=== PATIENT | female | born 1975 | race Caucasian/White ===

== ENCOUNTER → 2016-09-18 | Outpatient (CLI) | payer BC ==
[~2016-09-18] MED LIST: LACTCAP7 PO; MULT-65 PO; OMEG100037 PO; PERC5TAB12 PO; PREN0.01 PO
== END ==
LOC: MERGE 10:09 → HPND 10:09
PROVIDERS: ATTEND Obstetrics & Gynecology
DX: O09.522 Supervision of elderly multigravida, second trimester (principal)
CPT/HCPCS: 76811

== ENCOUNTER → 2016-10-23 | Outpatient (CLI) | payer BC | LOC: HPND 12:47 → MERGE 12:47 | PROVIDERS: ATTEND Obstetrics & Gynecology | DX: O09.522 Supervision of elderly multigravida, second trimester (principal) | CPT/HCPCS: 76816 ==

== ENCOUNTER 2017-02-07 13:16 | Inpatient (IN) | payer BC ==
[2017-02-17] VITALS (14 sets, daily range): BP systolic 91–116; BP diastolic 51–76; PULSE 52–88; RESP 16–20; TEMP 97.5–98.7; O2SAT 96–97
[2017-02-17] MEDS ORDERED: LACTATED RINGER'S 1000 ML INJ 1,000 ML IV ONE (06:34)
--- NOTE | 2017-02-17 06:40 | HHI.HP ---
HPI Chief Complaint 39 weeks for repeat CS and BTL Date Seen: Feb 17, 2017 Time Seen: 06:30 Travel History International Travel<30 Days: No Contact w/Intl Traveler<30Days: No Known Affected Area: No History of Present Illness HPI 41 yo at 39 weeks for CS BTL aware of risks and benefits Para: 2 : 3 History Past Medical History Medical History: Denies Significant Hx Obstetric History Obstetric History CS x2 Past Surgical History Narrative Surgical above Family History Family History: Negative Social History Alcohol Use: No Tobacco Use: No Substance Abuse: No Allergies-Medications (Allergen,Severity, Reaction): Coded Allergies: Aspirin (Verified Allergy, Severe, STOMACH PROBLEM, 04/06/11) Latex (Verified Allergy, Severe, Itching, 04/06/11) Penicillin (Verified Allergy, Severe, Rash, 10/29/16) Home Meds Reported Medications Lactobacillus (Probiotic) Cap1 Tab PO DAILY 12/10/14 [place]-3 Fatty Acids (Fish Oil 1000 mg)1 Cap Cap1 Cap PO DAILY 12/10/14 Multiple Vitamin (Multi-Vitamin Daily)Daily Tab1 Tab PO DAILY 12/10/14 Oxycodone-Acetaminophen 5-325 mg (Percocet 5-325 mg)5 Mg/325 Mg Tab1-2 Tab PO Q4H PRN (PAIN) #30 TAB // Multivit/Min/Fol Ac/Iron/Pren ( Vit ( Plus)) Tab1 Tab PO DAILY #30 CONTINUE WHILE 04/06/11 Review of Systems Except as stated in HPI: all other systems reviewed are Neg Physical Exam Narrative GENERAL: Well-nourished, well-developed patient. SKIN: Warm and dry. HEAD: Normocephalic and atraumatic. EYES: No scleral icterus. No injection or drainage. ENT: No nasal drainage noted. Mucous membranes pink. Airway patent. NECK: Supple, trachea midline. No JVD. CARDIOVASCULAR: Regular rate and rhythm without murmurs, gallops, or rubs. RESPIRATORY: Breath sounds equal bilaterally. No accessory muscle use. BREASTS: Bilateral exam showed no masses , no retractions, no nipple discharge. ABDOMEN/GI: Abdomen soft, non-tender, bowel sounds present, no rebound, no guarding Gravid to [-] weeks size Fundal Height: [-] GENITOURINARY: External Genitalia: intact and normal in appearance BUS glands: [-] Cervix: [-] Dilatation: [-] Effacement: [-] Station: [-] Presentation: [-] Membranes: [intact or ruptured] Uterine Contractions: [-] FHT's: Category: [-] Baseline: [-] Reactive: [-] Variability: [-] Decels: [-] EXTREMITIES: No cyanosis or edema. BACK: Nontender without obvious deformity. No CVA tenderness. NEUROLOGICAL: Awake and alert. Motor and sensory grossly within normal limits. Five out of 5 muscle strength in all muscle groups. Normal speech. Data Data Vital Signs Reviewed: Yes Orders Admit To Inpatient (02/17/17 ) Code Status (02/17/17 06:34) Vital Signs (Adult) .ON ADMISSION (02/17/17 06:34) Activity Oob Ad Sonya (02/17/17 06:34) Heart (02/17/17 06:34) Urinary Catheter Management TIGRE.Q8H (02/17/17 06:34) ^ Preps (02/17/17 06:34) Scd / Gordo / Foot Pump TIGRE.QSHIFT (02/17/17 06:34) ^ Ultrasound For Locatio (02/17/17 06:34) Diet Npo (02/17/17 Breakfast) Lactated Ringer's 1000 Ml Inj (Lr 1000 M (02/17/17 06:34) Lactated Ringer's 1000 Ml Inj (Lr 1000 M (02/17/17 07:04) Cefazolin 2 Gm Premix (Ancef 2 Gm Premix (02/17/17 07:45) Citric Acid-Sodium Citrate Liq (Bicitra (02/17/17 08:15) Type And Screen (02/17/17 06:34) Complete Blood Count With Diff (02/17/17 06:34) Urinalysis - C+S If Indicated (02/17/17 06:34) Inpatient Certification (02/17/17 ) Specimen To Be Collected PRN (02/17/17 06:34) Assessment/Plan Problem List: (1) Previous section (2) 39 weeks gestation of (3) Encounter for sterilization Assessment and Plan for surgery Blaise Colby MD Feb 17, 2017 06:40
[2017-02-17] MEDS ORDERED: CLINDAMYCIN 600 MG/NS 100 ML IV SCH ×2 (07:00)
[2017-02-17] MEDS ORDERED: LACTATED RINGER'S 1000 ML INJ 1,000 ML IV SCH ×2 (07:04→13:52)
[2017-02-17 07:33] LABS: AUTOMATED NEUTROPHIL # 7.7 TH/MM3 (1.8-7.7); BASOPHIL # 0.1 TH/MM3 (0-0.2); BASOPHIL % 0.7 % (0.0-2.0); EOSINOPHIL # 0.1 TH/MM3 (0-0.4); HEMATOCRIT 34.5 % (35.0-46.0); HEMO FLAGS DIFF FINAL; LYMPH % 19.7 % (9.0-44.0); LYMPHOCYTE # 2.1 TH/MM3 (1.0-4.8); MEAN CELL VOLUME 91.2 FL (80.0-100.0); MEAN CORPUSCULAR HEMOGLOBIN 32.6 PG (27.0-34.0); MEAN CORPUSCULAR HGB CONC 35.8 % (32.0-36.0); MONO % 4.4 % (0.0-8.0); NEUT % 74.2 % (16.0-70.0); PLATELET COUNT 125 TH/MM3 (150-450); RED BLOOD COUNT 3.78 MIL/MM3 (4.00-5.30); WHITE BLOOD COUNT 10.4 TH/MM3 (4.0-11.0)
[2017-02-17] MEDS ORDERED: ceFAZolin 2 GM PREMIX 50 ML IV SCH (07:45)
[2017-02-17] MEDS ORDERED: CLINDAMYCIN PHOS 600 MG/4 ML VIAL ONE (07:46)
[2017-02-17] MEDS ORDERED: OXYTOCIN 10 UNIT/ML AMP ONE (07:47)
[2017-02-17 07:54] LABS: BACTERIA, URINE OCC /hpf; BLOOD, URINE NEG (NEG); COMMENT (UR) CULT NOT INDICATED; CULTURE IF INDICATED CULT NOT INDICATED; GLUCOSE,URINE NEG (NEG); KETONE, URINE NEG (NEG); MUCUS URINE FEW /lpf (OCC); NITRITE,URINE NEG (NEG); PH, URINE 6.5 (5.0-8.5); SQUAMOUS EPITHELIAL CELL URINE 8 /hpf (0-5); URINE COLOR YELLOW (YELLW/STRAW)
[2017-02-17] MEDS ORDERED: EPIDURAL-NALOXONE HCL 0.4 MG/ML AMP IV PRN (08:00)
[2017-02-17] MEDS ORDERED: ONDANSETRON HCL 4 MG/2 ML VIAL IV PUSH ONE (08:00)
[2017-02-17] MEDS ORDERED: EPIDURAL-DIPHENHYDRAMINE HCL 50 MG CAP PO PRN (08:00)
[2017-02-17] MEDS ORDERED: EPIDURAL-DIPHENHYDRAMINE HCL 50 MG/ML VIAL IV PUSH PRN (08:00)
[2017-02-17] MEDS ORDERED: EPIDURAL-DO NOT ADMINISTER ANTICOAGULANTS PRN (08:00)
[2017-02-17] MEDS ORDERED: EPIDURAL-NO SYSTEMIC NARCOTICS PRN (08:00)
[2017-02-17] MEDS ORDERED: LACTATED RINGER'S 1,000 ML BAG IV ONE (08:00)
[2017-02-17] MEDS ORDERED: MORPHINE SULFATE PF 5 MG/10 ML VIAL IT ONE (08:00)
[2017-02-17] MEDS ORDERED: PHENYLEPH/NS 1000 MCG/10 ML SYR IV ONE (08:00)
[2017-02-17] MEDS ORDERED: CITRIC ACID-SODIUM CITRATE LIQ 30 ML UDC PO SCH (08:15)
--- NOTE | 2017-02-17 08:56 | PD.OB.DELI ---
Procedure Note Section Procedure Pre Op Diagnosis: (1) 39 weeks gestation of (2) Encounter for sterilization (3) Previous section Post Op Diagnosis: (1) Encounter for sterilization (2) delivery delivered Performed by Blaise Colby Procedure: Repeat Low Transverse Sec, Other (BTL) Indication for delivery: Desired elective repeat Informed consent obtained: For anesthesia, For procedure Confirmed correct: Patient, Procedure, Site, Time-out taken Anesthesia: Spinal Urinary catheter: Inserted using sterile technique, To dependent drainage Sterile preparation: Duraprep Position: Supine with wedge to left side Operative Features Skin Incision: Pfannenstiel Uterine Incision: Low transverse w/knife / blunt ext Presentation: Occiput anterior Delivery of infant: Uneventful Infant: Female, Single One Minute : 9 Five Minute : 9 Weight: 3180 gm Status of infant: Viable, Cord blood Placenta delivered: Intact Medications: Antibiotics Estimated blood loss: 500 Procedure tolerated: Well Maternal Condition: Stable Condition: Stable Blaise Colby MD Feb 17, 2017 08:56
[2017-02-17] MEDS ORDERED: SODIUM CHLORIDE 0.9% FLUSH 10 ML FLUSH IV FLUSH PRN (09:00)
[2017-02-17] MEDS ORDERED: KETOROLAC TROMETHAMINE 60 MG/2 ML (IM) VIAL IM PRN (09:00)
[2017-02-17] MEDS ORDERED: oxyCODONE/ACETAMINOPHEN 5 MG/325 MG TAB PO PRN (09:00)
[2017-02-17] MEDS ORDERED: SODIUM CHLORIDE 0.9% FLUSH 10 ML FLUSH IV FLUSH SCH (09:00)
[2017-02-17] MEDS ORDERED: SIMETHICONE 80 MG CHEWABLE TAB PO PRN (09:00)
[2017-02-17] MEDS ORDERED: OXYTOCIN 30 UNITS-500ML PREMIX 500 ML IV ONE (09:00)
[2017-02-17] MEDS ORDERED: KETOROLAC TROMETHAMINE 60 MG/2 ML (IM) VIAL IM ONE (09:43)
[2017-02-17] MEDS: IBUPROFEN 600 MG TAB PO PRN ×2 (15:45→23:23)
[2017-02-17] MEDS ORDERED: MORPHINE SULFATE PF 10 MG/10 ML VIAL ONE (16:22)
[2017-02-17] MEDS ORDERED: ONDANSETRON HCL 4 MG/2 ML VIAL ONE (16:22)
[2017-02-17] MEDS ORDERED: OXYTOCIN 30 UNITS-500ML PREMIX 500 ML IV PRN (19:00)
[2017-02-17] MEDS: oxyCODONE/ACETAMINOPHEN 5 MG/325 MG TAB PO PRN (21:01)
[2017-02-18 01:35] VITALS: BP 96/70; PULSE 79; RESP 18
[2017-02-18] MEDS: oxyCODONE/ACETAMINOPHEN 5 MG/325 MG TAB PO PRN ×6 (01:37→22:34)
[2017-02-18 05:10] VITALS: BP 100/58; PULSE 67; RESP 20; TEMP 98
[2017-02-18] MEDS: IBUPROFEN 600 MG TAB PO PRN ×3 (05:19→17:06)
[2017-02-18 08:00] VITALS: BP 85/63; PULSE 56; RESP 16; RESP 18; TEMP 97.3
--- NOTE | 2017-02-18 08:28 | MP ---
cc: EVANGELINA COLBY DATE OF SURGERY: 02/17/2017 PROCEDURE Repeat low transverse section, bilateral tubal ligation. PREOPERATIVE DIAGNOSIS Desires permanent sterilization, repeat x3. POSTOPERATIVE DIAGNOSIS Desires permanent sterilization, repeat x3. SURGEON Dr. Evangelina Colby. ESTIMATED BLOOD LOSS 500 ccs. COMPLICATIONS None. ANESTHESIA Spinal. FINDINGS Live female , 3180 grams, Apgars 9 and 9. PROCEDURE IN DETAIL After informed consent the patient was taken to the operating room where she was placed under spinal anesthesia, placed in the supine position, left lateral tilt. The abdomen, perineum and vagina were prepped and draped in normal sterile fashion. Soriano catheter was then placed to gravity. Once adequate anesthesia was assured a Pfannenstiel skin incision was carried sharply at the old scar, part of the scar was excised secondary to some thickness. We incised down to the level of the rectus muscle, dissected rectus muscle, in the midline. The peritoneum was entered bluntly with a finger. The incision was extended laterally using blunt traction. A hand was placed into the abdomen. The uterus was noted to be midline. Bladder was already low and a bladder flap was created by dissecting the bladder and bladder blade was replaced. A low-transverse uterine incision was then made, carried sharply to the uterine cavity. Clear fluid was noted. The incision was extended laterally using blunt traction. The hand was placed into the uterus. The infant's head was guided through the incision using fundal pressure, the infant's head readily delivered. Nose and mouth were suctioned well. Cord was clamped and cut and the was handed to the pediatrics in attendance. Cord blood was collected. Placenta was delivered manually. The uterus was exteriorized, wiped free from all remaining products of conception. The uterine incision was then closed with running locking stitch of chromic suture. Good hemostasis was achieved. Fallopian tubes were tied bilaterally. The right fallopian tube was tagged in a Meenu fashion. Once both fallopian tubes were tied the uterus was placed back in the abdomen with some slight oozing from the right fallopian tube, so a second stitch was placed for hemostasis. Good hemostasis was achieved. No hematoma was forming. At this point the uterine incision was inspected one more time. The left and right fallopian tube pedicles were inspected and noted to be hemostatic. The fascia was then closed with Vicryl suture. The skin was closed with subcuticular stitch. Each layer was noted to be hemostatic prior to closure and the patient tolerated the procedure well. MD JEFFERSON Neal/KHADIJAH /8:56 AM /8:17 AM
--- NOTE | 2017-02-18 08:43 | HHI.OB ---
Subjective Post Day: 1 Remarks doing well Objective Vitals/I&O Vital Signs Date Time Temp Pulse Resp B/P Pulse Ox O2 Delivery O2 Flow Rate FiO2 02/18/17 05:10 67 20 100/58 02/18/17 05:10 98.0 02/18/17 01:35 18 02/18/17 01:35 79 96/70 02/17/17 23:00 65 20 100/62 02/17/17 21:40 98.7 02/17/17 18:14 98.6 88 16 116/67 02/17/17 17:20 18 02/17/17 16:45 18 02/17/17 15:39 97.9 60 20 92/62 02/17/17 10:40 17 02/17/17 10:40 52 103/76 02/17/17 10:10 97.5 02/17/17 09:55 95/56 02/17/17 09:55 56 18 96 02/17/17 09:40 56 18 97/55 96 02/17/17 09:25 60 18 96/52 96 02/17/17 09:10 66 18 97/51 96 02/17/17 08:55 91/56 02/17/17 08:55 97.8 18 97 02/17/17 08:55 66 Objective Remarks GENERAL: Well-nourished, well-developed patient. ABDOMEN/GI: Abdomen soft, non-tender. Fundus: Firm, non-tender at umbilicus. GENITOURINARY: Light to moderate bleeding. EXTREMITIES: No cyanosis or edema, non-tender, without signs of DVT. Medications and IVs Current Medications Medications (Trade) Dose Ordered Sig/Kalin Route Start Time Stop Time Status Last Admin (Lr 1000 ml Inj) 1,000 ml @ 100 mls/hr Q10H IV 02/17/17 13:52 02/18/17 09:51 (NS Flush) 2 ml BID IV FLUSH 02/17/17 09:00 (NS Flush) 2 ml UNSCH PRN IV FLUSH 02/17/17 09:00 (Mylicon Chew) 80 mg QID PRN PO 02/17/17 09:00 (Motrin) 600 mg Q6H PRN PO 02/17/17 09:00 02/18/17 05:19 (Toradol Inj) 30 mg Q6H PRN IM 02/17/17 09:00 02/18/17 08:59 02/17/17 09:45 (Percocet 5-325 Mg) 1 tab Q4H PRN PO 02/17/17 09:00 02/17/17 16:16 (Percocet 5-325 Mg) 2 tab Q4H PRN PO 02/17/17 09:00 02/18/17 05:19 (M-M-R Ii Inj) 0.5 ml ONCE ONCE SQ 02/18/17 16:00 02/18/17 16:01 (Boostrix Inj) 0.5 ml ONCE ONCE IM 02/18/17 16:00 02/18/17 16:01 Assessment/Plan Problem List: (1) Previous section (2) 39 weeks gestation of (3) Encounter for sterilization Assessment and Plan for surgery Blaise Colby MD Feb 18, 2017 08:43
[2017-02-18 09:55] LABS: AUTOMATED NEUTROPHIL # 6.6 TH/MM3 (1.8-7.7); BASOPHIL % 0.4 % (0.0-2.0); EOSINOPHIL # 0.1 TH/MM3 (0-0.4); EOSINOPHIL % 1.4 % (0.0-4.0); HEMO FLAGS DIFF FINAL; LYMPH % 19.4 % (9.0-44.0); LYMPHOCYTE # 1.7 TH/MM3 (1.0-4.8); MEAN CELL VOLUME 94.5 FL (80.0-100.0); MEAN CORPUSCULAR HEMOGLOBIN 31.5 PG (27.0-34.0); MEAN CORPUSCULAR HGB CONC 33.3 % (32.0-36.0); MONO % 4.2 % (0.0-8.0); NEUT % 74.6 % (16.0-70.0); PLATELET COUNT 115 TH/MM3 (150-450); RED CELL DISTRIBUTION WIDTH 13.1 % (11.6-17.2); WHITE BLOOD COUNT 8.9 TH/MM3 (4.0-11.0)
[2017-02-18] MEDS ORDERED: MEASLES, MUMPS, RUBELLA VACCINE 0.5 ML VIAL SQ ONE (16:00)
[2017-02-18] MEDS ORDERED: DIPHTH/TETANUS/ACEL PERTUSSIS (BOOSTER) 0.5 ML VIAL/PFS IM ONE (16:00)
[2017-02-18 19:45] VITALS: BP 115/65; PULSE 70; RESP 16; TEMP 98
[2017-02-18] MEDS: diphenhydrAMINE HCL 50 MG CAP PO PRN (22:52)
[2017-02-19] MEDS: oxyCODONE/ACETAMINOPHEN 5 MG/325 MG TAB PO PRN ×2 (02:56→07:20)
[2017-02-19] MEDS: IBUPROFEN 600 MG TAB PO PRN ×3 (02:56→15:51)
[2017-02-19] MEDS: diphenhydrAMINE HCL 50 MG CAP PO PRN (06:44)
[2017-02-19 08:50] VITALS: BP 104/57; PULSE 64; RESP 16; TEMP 97.7
[2017-02-19] MEDS ORDERED: OXYC1TAB63 PO (11:07)
[2017-02-19] MEDS ORDERED: oxyCODONE/ACETAMINOPHEN 5 MG/325 MG TAB PO PRN (11:15)
--- NOTE | 2017-02-19 12:19 | HHI.OB ---
Subjective Post Day: 2 Remarks doing well dc home Objective Vitals/I&O Vital Signs Date Time Temp Pulse Resp B/P Pulse Ox O2 Delivery O2 Flow Rate FiO2 02/19/17 08:50 97.7 64 16 104/57 02/18/17 19:45 98.0 70 16 115/65 Objective Remarks GENERAL: Well-nourished, well-developed patient. ABDOMEN/GI: Abdomen soft, non-tender. Fundus: Firm, non-tender at umbilicus. GENITOURINARY: Light to moderate bleeding. EXTREMITIES: No cyanosis or edema, non-tender, without signs of DVT. Medications and IVs Current Medications Medications (Trade) Dose Ordered Sig/Kalin Route Start Time Stop Time Status Last Admin (NS Flush) 2 ml BID IV FLUSH 02/17/17 09:00 (NS Flush) 2 ml UNSCH PRN IV FLUSH 02/17/17 09:00 (Mylicon Chew) 80 mg QID PRN PO 02/17/17 09:00 (Motrin) 600 mg Q6H PRN PO 02/17/17 09:00 02/19/17 09:54 (Benadryl) 50 mg Q4H PRN PO 02/18/17 22:45 02/19/17 06:44 (Percocet 5-325 Mg) 1 tab Q4H PRN PO 02/19/17 11:15 02/19/17 12:03 Assessment/Plan Problem List: (1) Previous section (2) 39 weeks gestation of (3) Encounter for sterilization Assessment and Plan CS BTL ok to dc home Blaise Colby MD Feb 19, 2017 12:19
--- NOTE | 2017-02-19 12:22 | HHI.DCPOC ---
Discharge Care Plan Diagnosis: (1) delivery delivered (2) Encounter for sterilization Report Symptoms to Your Doctor -Temperature above 100.5 degrees -Redness, of incision or excessive or foul smelling drainage -Unusual pain or calf pain -Increased vaginal bleeding -Painful or difficulty urinating -Feelings of extreme sadness or anxiety after 2 weeks Goals to Promote Your Health * To prevent worsening of your condition and complications * To maintain your health at the optimal level Directions to Meet Your Goals Take your medications as prescribed Follow your dietary instruction Follow activity as directed Ensure plenty of rest for recovery Drink fluids for hydration Keep your appointments as scheduled Take your immunizations and boosters as scheduled If your symptoms worsen call your PCP, if no PCP go to Urgent Care Center or Emergency Room Smoking is Dangerous to Your Health. Avoid second hand smoke Call the 24-hour crisis hotline for domestic abuse at Blaise Colby MD Feb 19, 2017 12:22
--- NOTE | 2017-02-19 12:24 | HHI.DS ---
Admission Date Feb 17, 2017 at 06:26 Discharge Date: Feb 19, 2017 Admitting Diagnosis Diagnosis: (1) delivery delivered Diagnosis: Principal (2) Encounter for sterilization Diagnosis: Principal Delivery Date: Feb 17, 2017 : Repeat (BTL) Infant: Female, Single Brief History 41 yo at 39 weeks for CS BTL aware of risks and benefits Hospital Course doing well dc home pod #2 Pt Condition on Discharge: Good Discharge Disposition: Discharge Home Discharge Instructions Diet Instructions: As Tolerated, No Restrictions Activities You Can Perform: Pelvic Rest Activities to Avoid: Driving for 24 hrs Follow up Referrals: [employer]PER[employer]OR - 2 Weeks @ [facility] with Blaise Colby MD New Medications: Oxycodone-Acetaminophen (Oxycodone-Acetaminophen) 5-325 mg Tab 2 TAB PO Q4H PRN PAIN SCALE 6 TO 10 #30 TAB Continued Medications: Lactobacillus (Probiotic) Cap 1 TAB PO DAILY CAP Multiple Vitamin (Multi-Vitamin Daily) Daily Tab 1 TAB PO DAILY TAB [place]-3 Fatty Acids (Fish Oil 1000 mg) 1 Cap Cap 1 CAP PO DAILY Oxycodone-Acetaminophen 5-325 mg (Percocet 5-325 mg) 5 Mg/325 Mg Tab 1-2 TAB PO Q4H PRN PAIN #30 TAB Discontinued Medications: Multivit/Min/Fol Ac/Iron/Pren ( Vit ( Plus)) Tab 1 TAB PO DAILY CONTINUE WHILE #30 Blaise Colby MD Feb 19, 2017 12:24
== END 2017-02-19 16:50 | disposition home or self-care (01) | DRG 766 ==
LOC: H2EB 02-17 06:26 → H1EA 02-17 10:20
PROVIDERS: ADMIT Obstetrics & Gynecology; ATTEND Obstetrics & Gynecology
PROC: 10D00Z1 Extraction of Products of Conception, Low, Open Approach (ICD-10-PCS; principal; 2017-02-17)
PROC: 0UB70ZZ Excision of Bilateral Fallopian Tubes, Open Approach (ICD-10-PCS; 2017-02-17)
DX: O34.211 Maternal care for low transverse scar from previous cesarean delivery (principal); Z30.2 Encounter for sterilization; Z37.0 Single live birth; Z3A.39 39 weeks gestation of pregnancy
CPT/HCPCS: 81001; 85025; 86850; 86900; 86901; 88302; 90715; J1200; J1885; J2274; J2370; J2405; J2590; J7120; Q0163